=== PATIENT | female | born 1960 ===

== ENCOUNTER 2017-10-07 05:05 | Emergency (ER) | payer MEDICAID, OTHER ==
[2017-10-07 05:38] VITALS: RESP 18
[2017-10-07 06:09] LABS: BASO % 0.5 % (0.0-2.0); EOS # 0.5 K/uL (0.0-0.7); EOS % 6.3 % (0.0-4.0); HEMOGLOBIN 13.1 g/dL (12.0-16.0); LYMPH # 3.6 K/uL (1.0-4.3); LYMPH % 49.5 % (20.0-40.0); MEAN CORPUSCULAR HEMOGLOBIN 32.8 pg (27.0-31.0); MEAN CORPUSCULAR HGB CONC 34.2 g/dL (33.0-37.0); MEAN PLATELET VOLUME 9.6 fl (7.2-11.7); MONO # 0.4 K/uL (0.0-0.8); MONO % 4.9 % (0.0-10.0); NEUT # 2.8 K/uL (1.8-7.0); NEUT % 38.8 % (50.0-75.0); NRBC % 0.2 % (0.0-0.0); RED CELL DISTRIBUTION WIDTH 12.9 % (11.5-14.5); WHITE BLOOD COUNT 7.3 K/uL (4.8-10.8)
[2017-10-07 06:11] LABS: BLOOD UREA NITROGEN 15 mg/dl (7-17); CALCIUM 8.7 mg/dL (8.4-10.2); GFR AFRICAN-AMERICAN > 60; GFR NON-AFRICAN AMERICAN > 60
--- NOTE | 2017-10-07 06:31 | ED PDOC ---
HPI: SOB/CHF/COPD Time Seen by Provider: 10/07/17 05:14 Chief Complaint (Nursing): Shortness Of Breath Chief Complaint (Provider): Shortness of Breath History Per: Patient, [employer] ([facility] Barrera) History/Exam Limitations: no limitations Onset/Duration Of Symptoms: Days (x3) Current Symptoms Are (Timing): Still Present Associated Symptoms: denies: Fever, Chills, Sweating, Productive Cough Additional Complaint(s): Halle Fernández is a 57 year old female with a past medical history of prediabetes who is presenting to the Ed with complaints of nasal congestion and difficulty breathing through her nose, associated with chest tightness onset 3 days ago. Patient states that she has to breathe through her mouth for air to enter and reports chest discomfort only when she breathes in. She denies any fever, cough, chills, or sweats. Chest discomfort is nonradiating, nonexertional PMD: Narinder Gaming Past Medical History Reviewed: Historical Data, Nursing Documentation, Vital Signs Vital Signs: Last Vital Signs Temp 97.5 F L 10/07/17 05:12 Pulse 82 10/07/17 05:12 Resp 18 10/07/17 05:37 BP 145/88 10/07/17 05:12 Pulse Ox 99 10/07/17 06:35 - Medical History PMH: Anxiety, Asthma Other PMH: prediabetes - Surgical History Surgical History: No Surg Hx - Family History Family History: States: Unknown Family Hx - Social History Current smoker - smoking cessation education provided: No Alcohol: None Drugs: Denies - Home Medications Home Medications: Ambulatory Orders Medication Instructions Recorded LORazepam [Ativan] 0.5 mg PO DAILY PRN 06/19/15 Fluticasone Nasal [Flonase] 1 spr NS DAILY #1 spr 10/07/17 Ibuprofen [Motrin Tab] 600 mg PO Q6 #30 tab 10/07/17 - Allergies Allergies/Adverse Reactions: Allergies Allergy/AdvReac Type Severity Reaction Status Date / Time No Known Allergies Allergy Verified 06/19/15 16:28 Review of Systems ROS Statement: Except As Marked, All Systems Reviewed And Found Negative Constitutional: Negative for: Fever, Chills, Sweats ENT: Positive for: Nose Congestion Cardiovascular: Positive for: Chest Pain Respiratory: Positive for: Shortness of Breath. Negative for: Cough Physical Exam - Reviewed Nursing Documentation Reviewed: Yes Vital Signs Reviewed: Yes - Physical Exam Appears: Positive for: Well, Non-toxic, No Acute Distress Head Exam: Positive for: ATRAUMATIC, NORMAL INSPECTION, NORMOCEPHALIC Skin: Positive for: Normal Color, Warm, DRY Eye Exam: Positive for: EOMI, Normal appearance, PERRL ENT: Positive for: Normal ENT Inspection Neck: Positive for: Normal Cardiovascular/Chest: Positive for: Regular Rate, Rhythm. Negative for: Murmur Respiratory: Positive for: Normal Breath Sounds. Negative for: Respiratory Distress Gastrointestinal/Abdominal: Positive for: Normal Exam, Soft. Negative for: Tenderness Back: Positive for: Normal Inspection. Negative for: L CVA Tenderness, R CVA Tenderness, Vertebral Tenderness Extremity: Positive for: Normal ROM. Negative for: Pedal Edema, Deformity Neurologic/Psych: Positive for: Alert, Oriented. Negative for: Motor/Sensory Deficits - Laboratory Results Result Diagrams: 10/07/17 05:35 10/07/17 05:35 - ECG O2 Sat by Pulse Oximetry: 99 (RA) Pulse Ox Interpretation: Normal Medical Decision Making Medical Decision Making: Time: 5:24 A/P: --57 year old female with history of prediabetes presenting with nasal congestion shortness of breath, and pleuritic chest pain --Not concerned for pulmonary embolism due to negative PERC --Patient most likely suffering from viral upper respiratory infection and sinusitis --Will check lab work and chest x-ray --Given age, patient will follow up with PMD [id number] Patient's results negative Will give trial of flonase and NSAID Advised patient to followup with Dr. Gaming in 2 - 3 days Return precautions advised Patient well appearing, stable vitals upon discharge Scribe Attestation: Documented by Jackie Mckeon, acting as a scribe for Francisco Yates MD. Provider Scribe Attestation: All medical record entries made by the Scribe were at my direction and personally dictated by me. I have reviewed the chart and agree that the record accurately reflects my personal performance of the history, physical exam, medical decision making, and the department course for this patient. I have also personally directed, reviewed, and agree with the discharge instructions and disposition. Disposition - Clinical Impression Clinical Impression: Sinusitis, Upper respiratory disease - Patient ED Disposition Is Patient to be Admitted: No - Disposition Referrals: Narinder Gaming [Family Provider] - Disposition: Routine/Home Disposition Time: 06:44 Condition: GOOD Prescriptions: Fluticasone Nasal [Flonase] 1 spr NS DAILY #1 spr Ibuprofen [Motrin Tab] 600 mg PO Q6 #30 tab Instructions: Viral Upper Respiratory Infection, Adult (DC), Sinusitis in Adults Forms: [facility] (Wolof) Print Language: GEORGIAN
[2017-10-07 07:06] VITALS: BP 111/74; PULSE 63; TEMP 97.9; O2SAT 98
--- NOTE | 2017-10-07 09:20 | RAD ---
Date of service: 10/07/2017 HISTORY: sob COMPARISON: No prior. TECHNIQUE: Chest PA and lateral FINDINGS: LUNGS: No active pulmonary disease. PLEURA: No significant pleural effusion identified. No pneumothorax apparent. CARDIOVASCULAR: Normal. OSSEOUS STRUCTURES: No significant abnormalities. VISUALIZED UPPER ABDOMEN: Normal. OTHER FINDINGS: None. IMPRESSION: No acute cardiopulmonary disease appreciated.
== END 2017-10-07 07:05 | disposition home or self-care (01) ==
LOC: H.ER 05:05
DX: J32.9 Chronic sinusitis, unspecified (principal); J06.9 Acute upper respiratory infection, unspecified; R73.03 Prediabetes